=== PATIENT | male | born 1960 | race Asian ===

== ENCOUNTER 2020-09-14 06:49 | Outpatient (CLI) | payer OTHER ==
[2020-09-14 07:33] LABS: BASOPHILS # (AUTO) 0.1 K/uL (0.00-0.22); BASOPHILS % (AUTO) 1.3 % (0.0-2.0); EOSINOPHILS # (AUTO) 0.2 K/uL (0-0.4); EOSINOPHILS % (AUTO) 2.7 % (0.0-4.0); HEMATOCRIT 41.7 % (36-52); HEMOGLOBIN 14.4 g/dL (12.0-18.0); LYMPHOCYTES # (AUTO) 1.6 K/uL (2.0-11.5); LYMPHOCYTES % (AUTO) 21.9 % (20.5-51.1); MEAN CORPUSCULAR HEMOGLOBIN 31 pg (27-31); MEAN CORPUSCULAR HGB CONC 35 g/dL (33-37); MEAN CORPUSCULAR VOLUME 90.3 fL (80-94); MONOCYTES # (AUTO) 0.4 K/uL (0.8-1.0); NEUTROPHILS # (AUTO) 4.9 K/uL (1.8-7.7); NEUTROPHILS % (AUTO) 69.1 % (42.2-75.2); PLATELET COUNT (AUTO) 230 K/uL (140-450); RED BLOOD CELL COUNT(AUTO) 4.61 MIL/uL (4.20-6.10); RED CELL DISTRIBUTION WIDTH 13.1 % (11.6-13.7); WHITE BLOOD COUNT (AUTO) 7.2 K/uL (4.8-10.8)
[2020-09-14 07:49] LABS: ALBUMIN 3.7 g/dL (3.4-5.0); ANION GAP 9.4 (8-16); CARBON DIOXIDE 31.2 mmol/L (21-32); CREATININE 1.3 mg/dL (0.6-1.3); POTASSIUM 3.6 mmol/L (3.5-5.1); TOTAL BILIRUBIN 0.5 mg/dL (0.0-1.0)
[2020-09-14 08:38] LABS: APPEARANCE,URINE CLEAR (CLEAR); BILIRUBIN,URINE NEGATIVE (NEGATIVE); BLOOD, URINE NEGATIVE (NEGATIVE); LEUKOCYTE ESTERASE ,URINE NEGATIVE (NEGATIVE); NITRITE, URINE NEGATIVE (NEGATIVE); UGLUCOSE 3+ (NEGATIVE)
[2020-09-14 08:40] LABS: COLOR,URINE YELLOW (YELLOW)
[2020-09-15 08:07] LABS: PROSTATE SPEC AG TOTAL 0.8 ng/mL (0.0-4.0)
== END 2020-09-14 20:43 | disposition home or self-care (01) ==
LOC: MLB 06:49
PROVIDERS: ATTEND Urology
DX: N40.0 Benign prostatic hyperplasia without lower urinary tract symptoms (principal)
CPT/HCPCS: 36415; 80053; 81003; 83036; 84153; 84403; 85025

== ENCOUNTER 2023-04-03 07:12 | Inpatient (IN) | payer OTHER ==
[~2023-04-03] VITALS: Ht 160 cm; Wt 81.6 kg
[2023-04-03 07:20] VITALS: BP 169/92; PULSE 73; RESP 17; TEMP 97.6; O2SAT 97
[2023-04-03 08:09] LABS: BASOPHILS # (AUTO) 0.1 K/uL (0.00-0.22); BASOPHILS % (AUTO) 1.2 % (0.0-2.0); EOSINOPHILS # (AUTO) 0.2 K/uL (0-0.4); EOSINOPHILS % (AUTO) 3.4 % (0.0-4.0); HEMATOCRIT 40.6 % (36-52); HEMOGLOBIN 13.7 g/dL (12.0-18.0); LYMPHOCYTES # (AUTO) 1.6 K/uL (2.0-11.5); LYMPHOCYTES % (AUTO) 22.6 % (20.5-51.1); MEAN CORPUSCULAR HEMOGLOBIN 30 pg (27-31); MEAN CORPUSCULAR HGB CONC 34 g/dL (33-37); MEAN CORPUSCULAR VOLUME 90.4 fL (80-94); MONOCYTES # (AUTO) 0.5 K/uL (0.8-1.0); MONOCYTES % (AUTO) 6.7 % (1.7-9.3); NEUTROPHILS # (AUTO) 4.7 K/uL (1.8-7.7); NEUTROPHILS % (AUTO) 66.1 % (42.2-75.2); PLATELET COUNT (AUTO) 232 K/uL (140-450); RED BLOOD CELL COUNT(AUTO) 4.49 MIL/uL (4.20-6.10); RED CELL DISTRIBUTION WIDTH 12.9 % (11.6-13.7); WHITE BLOOD COUNT (AUTO) 7.1 K/uL (4.8-10.8)
[2023-04-03 08:32] LABS: ALANINE AMINOTRANSFERASE 31 U/L (12-78); ALBUMIN 3.3 g/dL (3.4-5.0); ALKALINE PHOSPHATASE 65 U/L (50-136); ANION GAP 10.5 (8-16); ASPARTATE AMINOTRANSFERASE 27 U/L (15-37); CALCIUM 8.8 mg/dL (8.5-10.1); CHLORIDE 99 mmol/L (98-107); CREATININE 1.3 mg/dL (0.6-1.3); GFR ARICAN-AMERICAN 71 mL/min (>90); GFR NON ARICAN-AMERICAN 59 mL/min (>90); GLUCOSE 153 mg/dL (74-106); POTASSIUM 3.5 mmol/L (3.5-5.1); SODIUM SERUM 134 mmol/L (136-145); TOTAL BILIRUBIN 0.5 mg/dL (0.0-1.0); TOTAL PROTEIN, SERUM 7.2 g/dL (6.4-8.2); UREA NITROGEN, BLOOD 19 mg/dL (7-18)
[2023-04-03] MEDS ORDERED: ASPIRIN 81 MG TAB.CHEW PO ONE (08:35)
[2023-04-03] MEDS ORDERED: ASPIRIN 325 MG TAB ONE (08:38)
[2023-04-03] MEDS ORDERED: LORazepam 2 MG/ML VIAL IVP PRN (10:05)
[2023-04-03] MEDS ORDERED: POTASSIUM CHLORIDE 10 MEQ TABER PO PRN (10:05)
[2023-04-03] MEDS ORDERED: MAG SULF 2000 MG/WATER PREMIX 50 ML IV PRN (10:05)
[2023-04-03] MEDS ORDERED: ZOLPIDEM 10 MG TAB PO PRN (10:05)
[2023-04-03] MEDS ORDERED: NACL 0.9% 1,000 ML IV ONE (10:05)
[2023-04-03] MEDS ORDERED: MORPHINE SULFATE 2 MG/ML SYR IVP PRN (10:05)
[2023-04-03] MEDS ORDERED: ONDANSETRON 4 MG/2 ML VIAL IVP PRN (10:05)
[2023-04-03] MEDS ORDERED: DOCUSATE SODIUM 100 MG GELCAP PO PRN (10:05)
[2023-04-03] MEDS ORDERED: ACETAMINOPHEN 325 MG TAB PO PRN (10:05)
[2023-04-03] MEDS ORDERED: DEXTROSE 50% 50 ML SYR IVP PRN (10:05)
[2023-04-03] MEDS ORDERED: METOPROLOL 25 MG TAB PO SCH (10:48)
[2023-04-03] MEDS ORDERED: ENOXAPARIN 40 MG/0.4 ML SYR SUBQ SCH (10:48)
[2023-04-03] MEDS ORDERED: LOSARTAN 25 MG TAB PO SCH (10:51)
[2023-04-03 11:05] VITALS: PULSE 69
[2023-04-03 11:10] VITALS: PULSE 66; RESP 20; O2SAT 98
[2023-04-03] MEDS: BLOOD GLUCOSE MONITORING 1 DEV DEV FS SCH ×3 (11:50→20:58)
[2023-04-03 12:00] VITALS: PULSE 70
[2023-04-03] MEDS: NIFEdipine 60 MG TABER PO SCH (13:38)
[2023-04-03 16:00] VITALS: BP 156/81; PULSE 62; PULSE 68; RESP 16; TEMP 97.7; O2SAT 98
[2023-04-03] MEDS: metFORMIN 850 MG TAB PO SCH (17:30)
[2023-04-03] MEDS: INSULIN LISPRO SLIDING SCALE 100 UNITS/ML VIAL SUBQ PRN ×2 (17:31→21:01)
[2023-04-03 20:00] VITALS: BP 135/67; PULSE 86; RESP 16; TEMP 97.5; O2SAT 95
[2023-04-03] MEDS: LOSARTAN 50 MG TAB PO SCH (20:52)
[2023-04-03] MEDS ORDERED: SIMVASTATIN 20 MG TAB PO SCH (21:00)
[2023-04-04] VITALS: BP 144/71; PULSE 78; RESP 16; TEMP 97.3; O2SAT 96
[2023-04-04 04:00] VITALS: BP 155/81; PULSE 74; PULSE 80; RESP 15; TEMP 97.3; O2SAT 97
[2023-04-04 06:25] LABS: BASOPHILS # (AUTO) 0.2 K/uL (0.00-0.22); BASOPHILS % (AUTO) 2.1 % (0.0-2.0); EOSINOPHILS # (AUTO) 0.3 K/uL (0-0.4); EOSINOPHILS % (AUTO) 3.8 % (0.0-4.0); HEMATOCRIT 43.8 % (36-52); HEMOGLOBIN 14.8 g/dL (12.0-18.0); LYMPHOCYTES # (AUTO) 1.3 K/uL (2.0-11.5); LYMPHOCYTES % (AUTO) 16.2 % (20.5-51.1); MEAN CORPUSCULAR HEMOGLOBIN 31 pg (27-31); MEAN CORPUSCULAR HGB CONC 34 g/dL (33-37); MONOCYTES # (AUTO) 0.4 K/uL (0.8-1.0); MONOCYTES % (AUTO) 5.1 % (1.7-9.3); NEUTROPHILS % (AUTO) 72.8 % (42.2-75.2); PLATELET COUNT (AUTO) 250 K/uL (140-450); RED BLOOD CELL COUNT(AUTO) 4.82 MIL/uL (4.20-6.10); WHITE BLOOD COUNT (AUTO) 8.2 K/uL (4.8-10.8)
[2023-04-04 06:31] LABS: ANION GAP 11.6 (8-16); CALCIUM 8.7 mg/dL (8.5-10.1); CARBON DIOXIDE 28.2 mmol/L (21-32); CREATININE 1.1 mg/dL (0.6-1.3); POTASSIUM 3.8 mmol/L (3.5-5.1)
[2023-04-04] MEDS: BLOOD GLUCOSE MONITORING 1 DEV DEV FS SCH (06:39)
[2023-04-04] MEDS: metFORMIN 850 MG TAB PO SCH (08:15)
[2023-04-04] MEDS ORDERED: ECOTRIN 81 MG TABEC PO SCH (09:00)
[2023-04-04] MEDS ORDERED: LOSA-270 PO (09:02)
[2023-04-04] MEDS ORDERED: ASPI-1856 PO (09:02)
[2023-04-04] MEDS ORDERED: METF-713 PO (09:02)
[2023-04-04] MEDS ORDERED: SIMV-30 PO (09:02)
[2023-04-04] MEDS ORDERED: NIFE60TA39 PO (09:02)
[2023-04-04] MEDS: NIFEdipine 60 MG TABER PO SCH (09:19)
[2023-04-04] MEDS: LOSARTAN 50 MG TAB PO SCH (09:19)
[2023-04-04 09:42] VITALS: BP 155/81; PULSE 80; RESP 15; TEMP 97.3
== END 2023-04-04 10:15 | disposition home or self-care (01) | DRG 391 ==
LOC: MED 07:12 → MTU 10:11
PROVIDERS: ADMIT General Practice; ATTEND General Practice
DX: K21.9 Gastro-esophageal reflux disease without esophagitis (principal); I21.A1 Myocardial infarction type 2; E44.1 Mild protein-calorie malnutrition; I25.10 Atherosclerotic heart disease of native coronary artery without angina pectoris; E78.5 Hyperlipidemia, unspecified; I12.9 Hypertensive chronic kidney disease with stage 1 through stage 4 chronic kidney disease, or unspecified chronic kidney disease; E11.22 Type 2 diabetes mellitus with diabetic chronic kidney disease; N18.9 Chronic kidney disease, unspecified; Z68.31 Body mass index [BMI] 31.0-31.9, adult
CPT/HCPCS: 36415; 71045; 80048; 80053; 82948; 83036; 83735; 84484; 85025; 87081; 99285; J1650; J1815

== ENCOUNTER 2023-07-20 06:38 | Outpatient (CLI) | payer OTHER ==
[~2023-07-20 06:38] MED LIST: ASPI-1856 PO; LOSA-270 PO; METF-713 PO; NIFE60TA39 PO; SIMV-30 PO
== END 2023-07-20 20:48 | disposition home or self-care (01) ==
LOC: MRD 06:38
PROVIDERS: ATTEND Family Medicine Geriatric Medicine
DX: M50.30 Other cervical disc degeneration, unspecified cervical region (principal); M19.071 Primary osteoarthritis, right ankle and foot; M77.32 Calcaneal spur, left foot; M77.31 Calcaneal spur, right foot; M48.02 Spinal stenosis, cervical region; M25.78 Osteophyte, vertebrae; R05.9 Cough, unspecified; M79.671 Pain in right foot; M79.672 Pain in left foot
CPT/HCPCS: 71046; 72050; 73630

== ENCOUNTER 2024-01-29 07:14 | Outpatient (CLI) | payer OTHER ==
[2024-02-05 16:51] LABS: ANTI-NUCLEAR ANTIBODY,DIRECT Positive (Negative); HLA B27 NEGATIVE (Negative)
[2024-02-05 16:52] LABS: HEPATITIS A ANTIBODY IGM NEGATIVE (NEGATIVE); HEPATITIS B CORE, IGM NEGATIVE (NEGATIVE); HEPATITIS B SURFACE ANTIGEN NEGATIVE (NEGATIVE)
[2024-02-05 17:09] LABS: VITAMIN D, 25-HYDROXY 49.9 ng/mL (30.0-100.0)
== END 2024-01-29 20:21 | disposition home or self-care (01) ==
LOC: MLB 07:14
PROVIDERS: ATTEND Internal Medicine
DX: R76.0 Raised antibody titer (principal); M25.50 Pain in unspecified joint; M45.9 Ankylosing spondylitis of unspecified sites in spine; B19.9 Unspecified viral hepatitis without hepatic coma
CPT/HCPCS: 36415; 80074; 82306; 82550; 84550; 85651; 86038; 86140; 86430